=== PATIENT | female | born 1975 | race Caucasian/White ===

== ENCOUNTER 2018-06-21 10:53 | Emergency (ER) | payer OTHER ==
[~2018-06-21] VITALS: Ht 167.6 cm; Wt 79.5 kg
[2018-06-21 11:05] VITALS: BP 125/76
--- NOTE | 2018-06-21 11:09 | NUR ---
PT AMBULATES TO BED 4
--- NOTE | 2018-06-21 11:16 | NUR ---
43 YO F BIB WITH C/O LT SIDED BREAST PAIN 8/10 SINCE LAST NIGHT; DENIES DISCHARGE H/A OR DIZZINESS; TOOK UNKNOWN PAIN MEDICATION FROM WITH SOME RELIEF; WORSE AGAIN THIS MORNING. PT REPORTS THAT SHE DOES NOT WANT TO TAKE ANY MORE PAIN MEDICATION AT THIS TIME. THE PAIN WORSENS WHEN SHE COUGHS AND MOVES/LIFTS HER ARM. PT AAOX4. GCS 15. CMS INTACT. RR EVEN AND UNLABORED. LUNGS CLEAR. ER MD NOTIFIED. PT NEEDS MET. SAFETY PRECAUTIONS IN PLACE. WILL CONTINUE TO MONITOR.
--- NOTE | 2018-06-21 11:26 | NUR ---
xray at bedside at this time.
[2018-06-21 11:52] VITALS: BP 125/76
== END 2018-06-21 11:52 | disposition home or self-care (01) ==
LOC: MED 10:53
DX: N64.4 Mastodynia (principal)
CPT/HCPCS: 71045; 93005; 99284; Q0092

== ENCOUNTER 2019-03-09 09:23 | Emergency (ER) | payer OTHER ==
[~2019-03-09] VITALS: Ht 167.6 cm; Wt 76.7 kg
[2019-03-09 09:30] VITALS: BP 144/79
--- NOTE | 2019-03-09 09:33 | NUR ---
Patient ambulated to bed 8 with family. RN evaluating patient at bedside.
--- NOTE | 2019-03-09 09:40 | NUR ---
C/O SHARP R KNEE PAIN 06/05 X1 DAY S/P HITTING KNEE ON CORNER OF BED LAST NIGHT. NO SWELLING, BRUISING, REDNESS NOTED. PT STATES THERE IS PAIN TO TOUCH, AND BEARING WEIGHT, PEDAL PULSE TO R FOOT PRESENT, PT CAN MOVE TOES, DENIES NUMBNESS/TINGLING. SKIN IS PINK/WARM/DRY; AAOX4 LUNGS CLEAR BL; HR EVEN AND REGULAR; VSS; PATIENT POSITIONED FOR COMFORT; HOB ELEVATED; BEDRAILS UP X1; BED DOWN. ER MD MADE AWARE OF PT STATUS.
--- NOTE | 2019-03-09 10:51 | NUR ---
Dr. Jarquin evaluating patient at bedside.
[2019-03-09] MEDS ORDERED: KETOROLAC 60 MG/2 ML VIAL IM ONE (11:20)
[2019-03-09] MEDS ORDERED: DEXAMETHASONE 10 MG/ML VIAL IM ONE (11:20)
--- NOTE | 2019-03-09 11:50 | NUR ---
SPLINT IN PLACE, PERFUSION GOOD, CAP REFIL <3 SECONDS, DENIES NUMBENESS/TINGLING.
[2019-03-09 12:00] VITALS: BP 136/77
== END 2019-03-09 12:00 | disposition home or self-care (01) ==
LOC: MED 09:23
DX: M17.11 Unilateral primary osteoarthritis, right knee (principal)
CPT/HCPCS: 73562; 96372; 99283; J1100; J1885; Q0092

== ENCOUNTER 2019-12-13 11:21 | Emergency (ER) | payer OTHER ==
[~2019-12-13] VITALS: Ht 167.6 cm; Wt 78.0 kg
[2019-12-13 11:54] VITALS: BP 137/89
--- NOTE | 2019-12-13 11:58 | NUR ---
PT AMBULATED TO ED [facility]
--- NOTE | 2019-12-13 12:42 | NUR ---
PT AMBULATED TO BED 03.
--- NOTE | 2019-12-13 12:50 | NUR ---
C/O RT KNEE PAIN X 2 DAYS. PAIN RADIATES TO THE FOOT, WORSEN WHEN STANDING. DENIES TRAUMA NOR INJURY. TOOK MOTRIN 1 HR AGO. DENIES PMH PATIENT STATES PAIN OF 7/10 AT THIS TIME. PATIENT POSITIONED FOR COMFORT; HOB ELEVATED; BEDRAILS UP X1; BED DOWN. ER MD MADE AWARE OF PT STATUS.
[2019-12-13] MEDS ORDERED: IBUPROFEN 600 MG TAB PO ONE (13:00)
[2019-12-13 13:27] VITALS: BP 125/78
--- NOTE | 2019-12-13 13:27 | NUR ---
Patient discharged with v/s stable. Written and verbal after care instructions given and explained. Patient alert, oriented and verbalized understanding of instructions. Ambulatory with to car. All questions addressed prior to discharge. ID band removed. Patient advised to follow up with PMD. Rx of MOTRIN given. Patient educated on indication of medication including possible reaction and side effects. Opportunity to ask questions provided and answered.
== END 2019-12-13 13:27 | disposition home or self-care (01) ==
LOC: MED 11:21
DX: M94.261 Chondromalacia, right knee (principal)
CPT/HCPCS: 73562; 81025; 99283; Q0092

== ENCOUNTER 2021-04-19 11:32 | Emergency (ER) | payer OTHER ==
[~2021-04-19] VITALS: Ht 162.6 cm; Wt 71.2 kg
[2021-04-19 11:35] VITALS: BP 128/87
[2021-04-19] MEDS ORDERED: KETOROLAC 60 MG/2 ML VIAL IM ONE (13:35)
[2021-04-19] MEDS ORDERED: METH4TAB1 PO (15:06)
[2021-04-19] MEDS ORDERED: NAPR-54 PO (15:06)
[2021-04-19 15:11] VITALS: BP 128/87
== END 2021-04-19 15:11 | disposition home or self-care (01) ==
LOC: MED 11:32
DX: M54.40 Lumbago with sciatica, unspecified side (principal); Z79.899 Other long term (current) drug therapy
CPT/HCPCS: 72110; 81002; 81025; 96372; 99283; J1885

== ENCOUNTER 2024-07-26 11:06 | Emergency (ER) | payer OTHER ==
[~2024-07-26] VITALS: Ht 167.6 cm; Wt 78.5 kg
[~2024-07-26 11:06] MED LIST: METH4TAB1 PO; NAPR-337 PO
[2024-07-26 11:16] VITALS: BP 140/71; PULSE 79; RESP 18; TEMP 98.1; O2SAT 99
--- NOTE | 2024-07-26 11:22 | NUR ---
PT AMB TO BED 9
[2024-07-26 11:42] VITALS: BP 146/77; PULSE 74; RESP 13
--- NOTE | 2024-07-26 11:42 | NUR ---
ER MED STUDENT AT BEDSIDE.
--- NOTE | 2024-07-26 11:46 | NUR ---
PATIENT PRESENTS TO ED WITH DIZZINESS. PT STATES THAT SHE HAS BEEN REALLY TIRED, DIZZEY, AND LIGHT HEADED. DENIES N/V/D; SKIN IS PALE/ WARM ; AAOX4 WITH EVEN AND STEADY GAIT; LUNGS CLEAR BL; HR EVEN AND REGULAR; PT DENIES ANY FEVER, CP, SOB, OR COUGH AT THIS TIME; PATIENT STATES PAIN OF 0/10 AT THIS TIME; VSS; PATIENT POSITIONED FOR COMFORT; HOB ELEVATED; BEDRAILS UP X2; BED DOWN. ER MD MADE AWARE OF PT STATUS. CALL LIGHT WITHIN REACH NKA
[2024-07-26 11:48] VITALS: O2SAT 100
[2024-07-26 13:11] LABS: BASOPHILS # (AUTO) 0.1 K/uL (0.00-0.22); BASOPHILS % (AUTO) 0.9 % (0.0-2.0); EOSINOPHILS # (AUTO) 0.2 K/uL (0-0.4); EOSINOPHILS % (AUTO) 2.8 % (0.0-4.0); HEMATOCRIT 28.9 % (36-48); HEMOGLOBIN 8.7 g/dL (12.0-16.0); LYMPHOCYTES # (AUTO) 1.7 K/uL (2.5-16.5); LYMPHOCYTES % (AUTO) 28.2 % (20.5-51.1); MEAN CORPUSCULAR HEMOGLOBIN 20 pg (27-31); MEAN CORPUSCULAR HGB CONC 30 g/dL (33-37); MEAN CORPUSCULAR VOLUME 67.2 fL (80-94); MONOCYTES # (AUTO) 0.5 K/uL (0.8-1.0); MONOCYTES % (AUTO) 8.6 % (1.7-9.3); NEUTROPHILS # (AUTO) 3.5 K/uL (1.8-7.7); NEUTROPHILS % (AUTO) 59.5 % (42.2-75.2); PLATELET COUNT (AUTO) 473 K/uL (140-450); RED CELL DISTRIBUTION WIDTH 19.6 % (11.6-13.7); WHITE BLOOD COUNT (AUTO) 5.9 K/uL (4.8-10.8)
[2024-07-26 13:17] LABS: ANION GAP 11.9 (8-16); CALCIUM 8.9 mg/dL (8.5-10.1); CARBON DIOXIDE 25.9 mmol/L (21-32); CREATININE 0.7 mg/dL (0.6-1.3); POTASSIUM 3.8 mmol/L (3.5-5.1)
[2024-07-26 13:26] LABS: APPEARANCE,URINE CLEAR (CLEAR); BILIRUBIN,URINE NEGATIVE (NEGATIVE); BLOOD, URINE NEGATIVE (NEGATIVE); COLOR,URINE YELLOW (YELLOW); LEUKOCYTE ESTERASE ,URINE NEGATIVE (NEGATIVE); NITRITE, URINE NEGATIVE (NEGATIVE); PROTEIN,URINE NEGATIVE (NEGATIVE); UGLUCOSE NEGATIVE (NEGATIVE); UROBILINOGEN,URINE 0.2 EU/dL (0.2 - 1)
[2024-07-26] MEDS ORDERED: ZOLP5TAB1 PO (14:02)
--- NOTE | 2024-07-26 14:13 | NUR ---
Patient discharged with v/s stable. Written and verbal after care instructions given FOR INSOMNIA Patient alert, oriented and verbalized understanding of instructions. Ambulatory with steady gait. All questions addressed prior to discharge. ID band removed. Patient advised to follow up with PMD. Rx of AMBIEM given. Opportunity to ask questions provided and answered.
== END 2024-07-26 14:13 | disposition home or self-care (01) ==
LOC: MED 11:06
DX: R53.83 Other fatigue (principal); G47.00 Insomnia, unspecified; D64.9 Anemia, unspecified; R42 Dizziness and giddiness; Z79.899 Other long term (current) drug therapy
CPT/HCPCS: 36415; 80048; 81003; 82948; 85025; 99283